=== PATIENT | male | born 1990 | race Caucasian/White ===

== ENCOUNTER 2016-08-02 20:25 | Emergency (ER) | payer OTHER, SELFPAY ==
[2016-08-02 20:36] VITALS: BP 159/76
--- NOTE | 2016-08-02 21:03 | EDM.PDOC ---
ED HPI GENERAL MEDICAL PROBLEM - General Chief Complaint: Respiratory Problem Stated Complaint: CONGESTION/SORE THROAT/FEVER Time Seen by Provider: 08/02/16 21:02 - History of Present Illness INITIAL COMMENTS - FREE TEXT/NARRATIVE: 26-year-old male presents to emergency room with worsening facial pressure and congestion. This started about 3 weeks ago progressively getting worse the pain is worse on the right side of his face. He has intermittent fevers significant postnasal drip that causes him to cough. He has no chest pain chest pressure no breathing difficulties or shortness of breath. Patient has had sinus problems in the past. Bilateral Ear Pain Score (Numeric/FACES): 7 - Related Data Allergies Allergy/AdvReac Type Severity Reaction Status Date / Time No Known Allergies Allergy Verified 08/02/16 20:33 Home Meds: Home Meds Amoxicillin 1,000 mg PO BID #56 tab 08/02/16 [Rx] Ibuprofen 400 mg PO ASDIRECTED PRN 08/02/16 [History] Past Medical History - Past Health History Medical/Surgical History: Denies Medical/Surgical History - Past Surgical History HEENT Surgical History: Reports: Oral Surgery Social & Family History - Family History Family Medical History: Noncontributory - Tobacco Use Smoking Status *Q: Current Every Day Smoker Years of Tobacco use: 12 Packs/Tins Daily: 0.5 Second Hand Smoke Exposure: Yes - Alcohol Use Days Per Week of Alcohol Use: 0 - Recreational Drug Use Recreational Drug Use: No ED ROS GENERAL - Review of Systems Review Of Systems: See Below Constitutional: Reports: Fever. Denies: Chills HEENT: Reports: Dental Pain (His right upper teeth are a little tender), Ear Pain (He has a pressure sensation in his ears), Rhinitis, Sinus Problem, Throat Pain (Very mild). Denies: Throat Swelling Respiratory: Reports: No Symptoms Cardiovascular: Reports: No Symptoms GI/Abdominal: Reports: No Symptoms : Reports: No Symptoms Musculoskeletal: Reports: No Symptoms ED EXAM, GENERAL - Physical Exam Exam: See Below Exam Limited By: No Limitations General Appearance: Alert, No Apparent Distress Eye Exam: Bilateral Eye: Normal Inspection Ears: Normal External Exam, Normal Canal, Other (TMs are bulging bilaterally nonerythematous) Nose: Normal Inspection, Other (Mucosa is slightly erythematous off colored drainage noted sinus percussion is exquisitely tender over the right maxillary sinus less so over the right frontal sinus no significant tenderness over the left maxillary or frontal sinuses) Throat/Mouth: Normal Inspection, Normal Lips, Normal Teeth, Normal Gums, Normal Oropharynx, Other (Sinus drainage noted in the posterior pharynx) Head: Atraumatic, Normocephalic Neck: Normal Inspection, Supple, Non-Tender, Full Range of Motion. No: Lymphadenopathy (L), Lymphadenopathy (R) Respiratory/Chest: No Respiratory Distress, Lungs Clear, Normal Breath Sounds Cardiovascular: Regular Rate, Rhythm, No Edema, No Murmur Course - Vital Signs Last Recorded V/S: Last Vital Signs Temp 37.2 C 08/02/16 20:34 Pulse 107 H 08/02/16 20:34 Resp 18 08/02/16 20:34 BP 159/76 H 08/02/16 20:34 Pulse Ox 96 08/02/16 20:34 - Orders/Labs/Meds Meds: Medications Discontinued Medications Generic Name Dose Route Start Last Admin Trade Name Ferminq PRN Reason Stop Dose Admin Amoxicillin 1,000 mg 08/02/16 21:43 08/02/16 21:51 Amoxil PO 08/02/16 21:44 1,000 mg ONETIME ONE Administration - Re-Assessments/Exams Free Text/Narrative Re-Assessment/Exam: 08/02/16 21:49 Exam consistent with acute right maxillary sinusitis he will be treated for this Departure - Departure Time of Disposition: 21:49 Disposition: Home, Self-Care 01 Clinical Impression: Acute maxillary sinusitis - Discharge Information Prescriptions: Amoxicillin 1,000 mg PO BID #56 tab Referrals: PCP,None [Primary Care Provider] - Forms: ED Department Discharge Additional Instructions: Return to the emergency room with any questions or problems, or worsening symptoms. You been started on amoxicillin take 2 tablets twice daily for 2 weeks. He may also benefit from taking loratadine 10 mg daily, continue this for several weeks after you finish the antibiotics see if this helps. Sometimes this helps prevent sinus infections.
[2016-08-02] MEDS ORDERED: Amoxicillin 500 MG Cap PO ONE (21:43)
== END 2016-08-02 22:00 | disposition home or self-care (01) ==
LOC: JD.ED 20:25
DX: J01.00 Acute maxillary sinusitis, unspecified (principal); F17.210 Nicotine dependence, cigarettes, uncomplicated; Z98.818 Other dental procedure status
CPT/HCPCS: 99283; A9270

== ENCOUNTER 2021-04-25 20:51 | Emergency (ER) | payer BC ==
[2021-04-25 21:02] VITALS: BP 164/85; PULSE 62
[2021-04-25] MEDS ORDERED: Ketorolac 15 MG/ML SDV IM ONE (21:32)
== END 2021-04-25 21:45 | disposition home or self-care (01) ==
LOC: JD.ED 20:51
DX: S43.402A Unspecified sprain of left shoulder joint, initial encounter (principal); W19.XXXA Unspecified fall, initial encounter
CPT/HCPCS: 73030; 96372; 99283; J1885; 29240

== ENCOUNTER 2023-08-08 19:17 | Emergency (ER) | payer BC ==
[2023-08-08 19:35] VITALS: BP 180/103; PULSE 94
[2023-08-08] MEDS: Sodium Chloride 0.9% 10 ML Syringe FLUSH ONE (20:07)
[2023-08-08] MEDS: Iopamidol 612 MG/ML 100 ML Bottle IVPUSH ONE (20:07)
[2023-08-08] MEDS: Ondansetron 4 MG/2 ML SDV IVPUSH ONE (20:12)
[2023-08-08] MEDS: Ketorolac 30 MG/ML SDV IVPUSH ONE (20:12)
[2023-08-08] MEDS: Lactated Ringers 1,000 ML IV SCH (20:13)
== END 2023-08-08 23:52 | disposition home or self-care (01) ==
LOC: JD.ED 19:17
DX: R10.31 Right lower quadrant pain (principal); D72.829 Elevated white blood cell count, unspecified; R21 Rash and other nonspecific skin eruption; I10 Essential (primary) hypertension
CPT/HCPCS: 74177; 96361; 96374; 96375; 99284; J1885; J2405; J3490; J7120; Q9967